=== PATIENT | male | born 1970 | race Caucasian/White ===

== ENCOUNTER 2016-12-26 23:53 | Emergency (ER) | payer MEDICAID ==
[~2016-12-26] VITALS: Ht 170.2 cm; Wt 60.1 kg
[~2016-12-26 23:53] MED LIST: CLON2TAB PO; QUET200T4 PO
[2016-12-26 23:54] VITALS: BP 143/95
== END 2016-12-27 00:44 | disposition home or self-care (01) ==
LOC: ED 23:59
DX: Z76.0 Encounter for issue of repeat prescription (principal); F20.9 Schizophrenia, unspecified; F32.9 Major depressive disorder, single episode, unspecified; F43.10 Post-traumatic stress disorder, unspecified; F41.1 Generalized anxiety disorder
CPT/HCPCS: 99283

== ENCOUNTER 2017-08-02 23:15 | Emergency (ER) | payer MEDICAID ==
[~2017-08-02] VITALS: Ht 170.2 cm; Wt 66.5 kg
[2017-08-02 23:18] VITALS: BP 150/86
== END 2017-08-02 23:26 | disposition left against medical advice (07) ==
LOC: ED 23:20
DX: Z53.21 Procedure and treatment not carried out due to patient leaving prior to being seen by health care provider (principal)

== ENCOUNTER 2019-05-13 06:52 | Emergency (ER) | payer SELFPAY ==
[~2019-05-13] VITALS: Ht 170.2 cm; Wt 74.3 kg
--- NOTE | 2019-05-13 06:56 | NUR ---
NA X1
[2019-05-13 07:03] VITALS: BP 115/83
[2019-05-13] MEDS ORDERED: MAALOX/HYOSCYAMINE/LIDOCAINE 45 ML BTL ONE (08:06)
--- NOTE | 2019-05-13 08:13 | NUR ---
PATIENT MEDICATED PER EMAR.
--- NOTE | 2019-05-13 08:17 | NUR ---
Patient given discharge instructions and they have confirmed that they understand the instructions. Patient ambulatory with steady gait.
[2019-05-13] MEDS ORDERED: MAALOX/HYOSCYAMINE/LIDOCAINE 45 ML BTL PO ONE (08:30)
== END 2019-05-13 08:19 | disposition home or self-care (01) ==
LOC: ED 08:00
DX: K12.1 Other forms of stomatitis (principal); Z90.81 Acquired absence of spleen
CPT/HCPCS: 99283

== ENCOUNTER 2019-05-16 08:52 | Emergency (ER) | payer MEDICAID ==
[~2019-05-16] VITALS: Ht 170.2 cm; Wt 75.6 kg
--- NOTE | 2019-05-16 08:55 | NUR ---
NIL X 1
[2019-05-16 08:58] VITALS: BP 114/69
[2019-05-16] MEDS ORDERED: HYDROcodone/APAP 5/325 TABLET PO ONE (09:30)
[2019-05-16] MEDS ORDERED: KETOROLAC 30 MG/1 ML IM ONE (09:30)
[2019-05-16] MEDS ORDERED: AMOXICILLIN 500 MG CAPSULE PO ONE (09:30)
[2019-05-16] MEDS ORDERED: KETOROLAC 60 MG/2 ML ONE (09:44)
[2019-05-16] MEDS ORDERED: AMOXICILLIN 500 MG CAPSULE ONE (09:44)
[2019-05-16] MEDS ORDERED: HYDROcodone/APAP 5/325 TABLET ONE (09:45)
== END 2019-05-16 10:12 | disposition home or self-care (01) ==
LOC: ED 10:01
DX: K04.7 Periapical abscess without sinus (principal); K14.0 Glossitis; F17.200 Nicotine dependence, unspecified, uncomplicated
CPT/HCPCS: 96372; 99283; J1885

== ENCOUNTER 2019-05-30 04:17 | Emergency (ER) | payer MEDICAID ==
[~2019-05-30] VITALS: Ht 170.2 cm; Wt 73.3 kg
[2019-05-30 04:19] VITALS: BP 132/75
--- NOTE | 2019-05-30 04:48 | NUR ---
REPORT RECEIVED, CARE ASSUMED. NO ACUTE DISTRESS NOTED. NO NEEDS EXPRESSED AT THIS TIME.
--- NOTE | 2019-05-30 05:57 | NUR ---
PT DOZING INTERMITTENTLY, AROUSES EASILY. NO IV TO DC. REVIEWED DC INSTRUCTIONS WITH PT, UNDERSTANDING VERBALIZED. PT LEFT AMB, GAIT STEADY.
== END 2019-05-30 06:00 | disposition home or self-care (01) ==
LOC: ED 05:20
DX: K08.89 Other specified disorders of teeth and supporting structures (principal)
CPT/HCPCS: 99283

== ENCOUNTER 2019-06-26 04:56 | Emergency (ER) | payer MEDICAID ==
[~2019-06-26] VITALS: Ht 170.2 cm; Wt 69.0 kg
[2019-06-26 04:58] VITALS: BP 141/72
== END 2019-06-26 05:44 | disposition home or self-care (01) ==
LOC: ED 05:42
DX: K14.0 Glossitis (principal)
CPT/HCPCS: 99283